=== PATIENT | female | born 1935 | race African-American/Black ===

== ENCOUNTER 2020-09-08 12:06 | Inpatient (IN) | payer OTHER ==
[2020-09-08 12:36] VITALS: BMI 24.4
[2020-09-08] MEDS ORDERED: ACETAMINOPHEN 1000 MG/100 ML VIAL (NON FORMULARY) IVPB ONE (12:58)
[2020-09-08] MEDS ORDERED: ACETAMINOPHEN INJECTION 100 ML IVPB ONE (13:35)
[2020-09-08 13:51] LABS: EPI CELLS 8 /uL (0-25.1); HYALINE CASTS 2 /uL (0-3.1); URINE APPEARANCE CLEAR; URINE BACTERIA 64 /uL (0-1359); URINE BILIRUBIN NEGATIVE (NEGATIVE); URINE COLOR YELLOW; URINE GLUCOSE (UA) NEGATIVE (NEGATIVE); URINE KETONE NEGATIVE (NEGATIVE); URINE LEUK ESTERASE NEGATIVE (NEGATIVE); URINE NITRITE NEGATIVE (NEGATIVE); URINE PROTEIN 1+ (NEGATIVE); URINE RBC 17 /uL (0-23.9); URINE UROBILINOGEN 0.2 mg/dL (0.2-1.0); URINE WBC 5 /uL (0-25.8)
[2020-09-08 15:17] LABS: VENOUS BASE EXCESS 2.3 mmol/L (-2-2); VENOUS O2 SATURATION 66.1 % (70-80); VENOUS PCO2 43.1 mmHg (38-52); VENOUS PH 7.42 (7.310-7.410)
[2020-09-08 15:20] LABS: BASO % 0.1 % (0-2.0); EOS % 0.1 % (0-4.5); HEMATOCRIT 50.1 % (32.4-45.2); HEMOGLOBIN 16.6 GM/dL (10.7-15.3); LYMPH % 14.7 % (8-40); MCH 32.8 pg (25.7-33.7); MCHC 33.2 g/dl (32.0-36.0); MEAN CELL VOLUME 98.8 fl (80-96); MONO % 7.8 % (3.8-10.2); NEUT % 77.3 % (42.8-82.8); PLATELET COUNT 148 K/MM3 (134-434); RBC 5.07 M/mm3 (3.60-5.2); RDW 15.7 % (11.6-15.6); WHITE BLOOD COUNT 10.8 K/mm3 (4.0-10.0)
[2020-09-08 15:26] LABS: INR 1.17 (0.83-1.09); PROTHROMBIN TIME (PATIENT) 14.3 SEC (9.7-13.0)
[2020-09-08 15:27] LABS: POTASSIUM 3.4 mmol/L (3.5-5.1)
[2020-09-08 15:28] LABS: ACTIVATED PTT 27.2 SECONDS (25.2-36.5)
[2020-09-08 15:29] LABS: ALBUMIN 3.3 g/dl (3.4-5.0)
[2020-09-08 15:31] LABS: BLOOD UREA NITROGEN 44.3 mg/dL (7-18)
[2020-09-08 15:32] LABS: BILIRUBIN,DIRECT 0.6 mg/dL (0.0-0.2); CREATININE 0.9 mg/dL (0.55-1.3)
[2020-09-08 15:34] LABS: TOT PROT 8.1 g/dl (6.4-8.2)
[2020-09-08] MEDS ORDERED: SODIUM CHLORIDE 0.9% 500 ML INFUS.BAG IV ONE (16:03)
[2020-09-08] MEDS ORDERED: DEXAMETHASONE SOD PHOSPHATE 4 MG/1 ML VIAL IVPUSH ONE (16:43)
[2020-09-08] MEDS ORDERED: ENOXAPARIN NA (PORCINE) 80 MG/0.8 ML DISP.SYRIN SQ ONE ×2 (16:49→17:59)
[2020-09-08] MEDS ORDERED: DEXAMETHASONE SOD PHOSPHATE 10 MG/1 ML VIAL ONE (17:59)
[2020-09-08] MEDS ORDERED: AZTREONAM 1 GM in DEXTROSE 5%-WATER - 50 ML IVPB ONE (18:13)
[2020-09-08] MEDS ORDERED: CLINDAMYCIN 600MG PREMIX IVPB 600 MG/50 ML BAG IVPB ONE (19:25)
[2020-09-08] MEDS: CLINDAMYCIN 600MG PREMIX IVPB 600 MG/50 ML BAG IVPB SCH ×2 (19:45→22:00)
[2020-09-09] MEDS ORDERED: CLINDAMYCIN 600MG PREMIX IVPB 600 MG/50 ML BAG IVPB ONE ×4 (03:12→21:08)
[2020-09-09] MEDS: CLINDAMYCIN 600MG PREMIX IVPB 600 MG/50 ML BAG IVPB SCH ×3 (03:16→16:22)
[2020-09-09 06:33] LABS: BASO % 0.1 % (0-2.0); HEMATOCRIT 42.4 % (32.4-45.2); HEMOGLOBIN 14.3 GM/dL (10.7-15.3); MCHC 33.6 g/dl (32.0-36.0); MEAN CELL VOLUME 98.2 fl (80-96); MEAN PLT VOLUME 11.6 fl (7.5-11.1); MONO % 2.6 % (3.8-10.2); NEUT % 90.3 % (42.8-82.8); PLATELET COUNT 137 K/MM3 (134-434); RBC 4.32 M/mm3 (3.60-5.2); RDW 14.9 % (11.6-15.6); WHITE BLOOD COUNT 14.8 K/mm3 (4.0-10.0)
[2020-09-09 06:47] LABS: POTASSIUM 3.2 mmol/L (3.5-5.1)
[2020-09-09 06:52] LABS: ALBUMIN 2.9 g/dl (3.4-5.0); BLOOD UREA NITROGEN 39.9 mg/dL (7-18)
[2020-09-09 06:55] LABS: CREATININE 0.7 mg/dL (0.55-1.3)
[2020-09-09 06:56] LABS: BILIRUBIN,TOTAL 1.2 mg/dL (0.2-1)
[2020-09-09 06:57] LABS: TOT PROT 7.4 g/dl (6.4-8.2)
[2020-09-09] MEDS ORDERED: FAMOTIDINE 20 MG TABLET ONE (09:58)
[2020-09-09] MEDS ORDERED: ENOXAPARIN NA (PORCINE) 80 MG/0.8 ML DISP.SYRIN SQ ONE ×2 (09:58→21:08)
[2020-09-09] MEDS: ENOXAPARIN NA (PORCINE) 80 MG/0.8 ML DISP.SYRIN SQ SCH (10:10)
[2020-09-09] MEDS: FAMOTIDINE 20 MG TABLET PO SCH (10:10)
[2020-09-09] MEDS ORDERED: AZTREONAM 1 GM VIAL (RESTRICTED TO ID) ONE (18:09)
[2020-09-09] MEDS: AZTREONAM 1 GM in DEXTROSE 5%-WATER - 50 ML IVPB SCH (18:36)
[2020-09-10] MEDS ORDERED: AZTREONAM 1 GM VIAL (RESTRICTED TO ID) ONE ×2 (00:37→09:09)
[2020-09-10] MEDS ORDERED: DEXTROSE 5%-WATER - 50 ML IVPB ONE ×2 (00:37→09:09)
[2020-09-10] MEDS: CLINDAMYCIN 600MG PREMIX IVPB 600 MG/50 ML BAG IVPB SCH ×3 (00:45→09:24)
[2020-09-10] MEDS: ENOXAPARIN NA (PORCINE) 80 MG/0.8 ML DISP.SYRIN SQ SCH ×3 (01:00→22:18)
[2020-09-10] MEDS: AZTREONAM 1 GM in DEXTROSE 5%-WATER - 50 ML IVPB SCH ×3 (02:30→18:03)
[2020-09-10] MEDS: FAMOTIDINE 20 MG TABLET PO SCH (09:24)
[2020-09-10] MEDS ORDERED: POTASSIUM CHLORIDE ORAL LIQUID 20 MEQ/15 ML GT ONE (13:32)
[2020-09-10] MEDS: VANCOMYCIN HCL 1,250 MG in DEXTROSE 5%-WATER - 1,250 MG/250 ML IVPB IVPB SCH (13:49)
[2020-09-11] MEDS: VANCOMYCIN HCL 1,250 MG in DEXTROSE 5%-WATER - 1,250 MG/250 ML IVPB IVPB SCH ×2 (00:17→12:01)
[2020-09-11] MEDS ORDERED: AZTREONAM 1 GM VIAL (RESTRICTED TO ID) ONE ×3 (01:33→16:54)
[2020-09-11] MEDS ORDERED: DEXTROSE 5%-WATER - 50 ML IVPB ONE ×3 (01:34→16:55)
[2020-09-11] MEDS: AZTREONAM 1 GM in DEXTROSE 5%-WATER - 50 ML IVPB SCH ×3 (02:00→17:29)
[2020-09-11 08:51] LABS: BASO % 0.1 % (0-2.0); EOS % 2.3 % (0-4.5); HEMATOCRIT 42.6 % (32.4-45.2); HEMOGLOBIN 13.7 GM/dL (10.7-15.3); LYMPH % 13.9 % (8-40); MCH 32.2 pg (25.7-33.7); MCHC 32.2 g/dl (32.0-36.0); MEAN CELL VOLUME 99.8 fl (80-96); MEAN PLT VOLUME 12.9 fl (7.5-11.1); MONO % 9.3 % (3.8-10.2); NEUT % 74.4 % (42.8-82.8); PLATELET COUNT 147 K/MM3 (134-434); RBC 4.27 M/mm3 (3.60-5.2); RDW 15.9 % (11.6-15.6); WHITE BLOOD COUNT 10.7 K/mm3 (4.0-10.0)
[2020-09-11 08:52] LABS: POTASSIUM 3.5 mmol/L (3.5-5.1)
[2020-09-11 09:02] LABS: CALCIUM 9.7 mg/dL (8.5-10.1)
[2020-09-11 09:03] LABS: ALBUMIN 2.8 g/dl (3.4-5.0)
[2020-09-11 09:05] LABS: BLOOD UREA NITROGEN 49.7 mg/dL (7-18)
[2020-09-11 09:06] LABS: CREATININE 0.8 mg/dL (0.55-1.3)
[2020-09-11 09:07] LABS: BILIRUBIN,TOTAL 0.5 mg/dL (0.2-1)
[2020-09-11] MEDS: FAMOTIDINE 20 MG TABLET PO SCH (09:55)
[2020-09-11] MEDS: ENOXAPARIN NA (PORCINE) 80 MG/0.8 ML DISP.SYRIN SQ SCH ×2 (09:55→22:35)
[2020-09-11] MEDS: D5-1/2NS+20 MEQ KCL - 20 MEQ/1,000 ML INFUS.BAG IV SCH (17:31)
[2020-09-12] MEDS ORDERED: AZTREONAM 1 GM VIAL (RESTRICTED TO ID) ONE (00:40)
[2020-09-12] MEDS ORDERED: DEXTROSE 5%-WATER - 50 ML IVPB ONE (00:41)
[2020-09-12] MEDS ORDERED: PT OWN MED DRAWER 7, Y5N ONE ×2 (00:43→14:49)
[2020-09-12] MEDS: VANCOMYCIN HCL 1,250 MG in DEXTROSE 5%-WATER - 1,250 MG/250 ML IVPB IVPB SCH ×2 (01:08→15:01)
[2020-09-12] MEDS: AZTREONAM 1 GM in DEXTROSE 5%-WATER - 50 ML IVPB SCH (03:15)
[2020-09-12] MEDS: ENOXAPARIN NA (PORCINE) 80 MG/0.8 ML DISP.SYRIN SQ SCH ×2 (09:19→21:16)
[2020-09-12] MEDS: FAMOTIDINE 20 MG TABLET PO SCH (09:19)
[2020-09-12 13:53] LABS: POTASSIUM 3.5 mmol/L (3.5-5.1)
[2020-09-12 13:54] LABS: BLOOD UREA NITROGEN 27.6 mg/dL (7-18)
[2020-09-12 13:58] LABS: CREATININE 0.5 mg/dL (0.55-1.3)
[2020-09-12 14:12] LABS: CHOLESTEROL 198 mg/dL (50-200)
[2020-09-12 14:13] LABS: LDL CHOLESTEROL (ONLY SJRH) 120 mg/dL (5-100); TRIGLYCERIDES 116 mg/dL (0-150)
[2020-09-12 14:15] LABS: HDL CHOLESTEROL 57 mg/dL (40-60)
[2020-09-12] MEDS: D5-1/2NS+20 MEQ KCL - 20 MEQ/1,000 ML INFUS.BAG IV SCH (15:02)
[2020-09-13] MEDS: VANCOMYCIN HCL 1,250 MG in DEXTROSE 5%-WATER - 1,250 MG/250 ML IVPB IVPB SCH ×2 (00:40→14:52)
[2020-09-13] MEDS: D5-1/2NS+20 MEQ KCL - 20 MEQ/1,000 ML INFUS.BAG IV SCH ×2 (09:30→14:09)
[2020-09-13] MEDS: FAMOTIDINE 20 MG TABLET PO SCH (10:08)
[2020-09-13] MEDS ORDERED: PT OWN MED DRAWER 7, Y5N ONE ×2 (13:58→21:07)
[2020-09-13] MEDS: ENOXAPARIN NA (PORCINE) 80 MG/0.8 ML DISP.SYRIN SQ SCH ×2 (14:07→21:48)
[2020-09-14] MEDS: VANCOMYCIN HCL 1,250 MG in DEXTROSE 5%-WATER - 1,250 MG/250 ML IVPB IVPB SCH ×2 (00:30→16:14)
[2020-09-14] MEDS ORDERED: PT OWN MED DRAWER 7, Y5N ONE (00:43)
[2020-09-14 07:33] LABS: HEMATOCRIT 34.5 % (32.4-45.2); HEMOGLOBIN 11.8 GM/dL (10.7-15.3); MCH 33.3 pg (25.7-33.7); MCHC 34.1 g/dl (32.0-36.0); MEAN CELL VOLUME 97.5 fl (80-96); MEAN PLT VOLUME 11.9 fl (7.5-11.1); PLATELET COUNT 137 K/MM3 (134-434); RBC 3.54 M/mm3 (3.60-5.2); RDW 15.2 % (11.6-15.6); WHITE BLOOD COUNT 7.2 K/mm3 (4.0-10.0)
[2020-09-14 08:02] LABS: CALCIUM 8.7 mg/dL (8.5-10.1)
[2020-09-14 08:03] LABS: ALBUMIN 2.1 g/dl (3.4-5.0); BLOOD UREA NITROGEN 13.7 mg/dL (7-18)
[2020-09-14 08:06] LABS: CREATININE 0.6 mg/dL (0.55-1.3)
[2020-09-14 08:07] LABS: BILIRUBIN,TOTAL 0.6 mg/dL (0.2-1); TOT PROT 5.6 g/dl (6.4-8.2)
[2020-09-14 10:51] LABS: POTASSIUM 2.9 mmol/L (3.5-5.1)
[2020-09-14] MEDS: FAMOTIDINE 20 MG TABLET PO SCH (11:00)
[2020-09-14] MEDS: ENOXAPARIN NA (PORCINE) 80 MG/0.8 ML DISP.SYRIN SQ SCH ×2 (11:00→21:29)
[2020-09-14] MEDS: KCL 10 MEQ IVPB 10 MEQ/100 ML INFUS.BAG IVPB SCH ×3 (11:16→13:59)
[2020-09-14] MEDS: D5-1/2NS+20 MEQ KCL - 20 MEQ/1,000 ML INFUS.BAG IV SCH (12:52)
[2020-09-15] MEDS: VANCOMYCIN HCL 1,250 MG in DEXTROSE 5%-WATER - 1,250 MG/250 ML IVPB IVPB SCH ×2 (01:12→11:42)
[2020-09-15 08:27] LABS: POTASSIUM 3.5 mmol/L (3.5-5.1)
[2020-09-15 08:29] LABS: CALCIUM 8.5 mg/dL (8.5-10.1)
[2020-09-15 08:30] LABS: BLOOD UREA NITROGEN 11.7 mg/dL (7-18)
[2020-09-15 08:33] LABS: CREATININE 0.9 mg/dL (0.55-1.3)
[2020-09-15] MEDS: ENOXAPARIN NA (PORCINE) 80 MG/0.8 ML DISP.SYRIN SQ SCH ×2 (09:01→22:27)
[2020-09-15] MEDS: FAMOTIDINE 20 MG TABLET PO SCH (09:02)
[2020-09-15] MEDS ORDERED: PT OWN MED DRAWER 7, Y5N ONE (11:39)
[2020-09-16 07:13] LABS: BASO % 0.2 % (0-2.0); EOS % 2.7 % (0-4.5); HEMATOCRIT 38.1 % (32.4-45.2); HEMOGLOBIN 12.8 GM/dL (10.7-15.3); LYMPH % 11.9 % (8-40); MCH 32.6 pg (25.7-33.7); MCHC 33.5 g/dl (32.0-36.0); MEAN CELL VOLUME 97.1 fl (80-96); MEAN PLT VOLUME 11.7 fl (7.5-11.1); MONO % 7.8 % (3.8-10.2); NEUT % 77.4 % (42.8-82.8); PLATELET COUNT 152 K/MM3 (134-434); RBC 3.92 M/mm3 (3.60-5.2); RDW 15.8 % (11.6-15.6); WHITE BLOOD COUNT 11.9 K/mm3 (4.0-10.0)
[2020-09-16 07:35] LABS: POTASSIUM 3.4 mmol/L (3.5-5.1)
[2020-09-16 07:42] LABS: CALCIUM 8.3 mg/dL (8.5-10.1)
[2020-09-16 07:43] LABS: ALBUMIN 2.1 g/dl (3.4-5.0); BLOOD UREA NITROGEN 21.5 mg/dL (7-18)
[2020-09-16 07:46] LABS: CREATININE 1.8 mg/dL (0.55-1.3)
[2020-09-16 07:47] LABS: BILIRUBIN,TOTAL 0.4 mg/dL (0.2-1); TOT PROT 5.8 g/dl (6.4-8.2)
[2020-09-16] MEDS: FAMOTIDINE 20 MG TABLET PO SCH (09:58)
[2020-09-16] MEDS: ENOXAPARIN NA (PORCINE) 80 MG/0.8 ML DISP.SYRIN SQ SCH (09:58)
[2020-09-16] MEDS ORDERED: POTASSIUM CHLORIDE ORAL LIQUID 20 MEQ/15 ML GT ONE (15:55)
[2020-09-16] MEDS: APIXABAN 5 MG TABLET GT SCH (23:21)
[2020-09-17 07:42] LABS: POTASSIUM 4.4 mmol/L (3.5-5.1)
[2020-09-17 07:44] LABS: CALCIUM 8.2 mg/dL (8.5-10.1)
[2020-09-17 07:45] LABS: ALBUMIN 1.9 g/dl (3.4-5.0); BLOOD UREA NITROGEN 30.1 mg/dL (7-18)
[2020-09-17 07:47] LABS: CREATININE 2.2 mg/dL (0.55-1.3)
[2020-09-17 07:49] LABS: BILIRUBIN,TOTAL 0.4 mg/dL (0.2-1); TOT PROT 5.4 g/dl (6.4-8.2)
[2020-09-17] MEDS: APIXABAN 5 MG TABLET GT SCH ×2 (09:35→21:27)
[2020-09-17] MEDS: FAMOTIDINE 20 MG TABLET PO SCH (09:35)
[2020-09-17] MEDS: SODIUM CHLORIDE 0.45% 1,000 ML IV SCH ×2 (13:30→23:00)
[2020-09-18 07:43] LABS: BASO % 0.2 % (0-2.0); HEMATOCRIT 31.7 % (32.4-45.2); HEMOGLOBIN 10.8 GM/dL (10.7-15.3); LYMPH % 15.8 % (8-40); MCH 33.1 pg (25.7-33.7); MEAN CELL VOLUME 97.4 fl (80-96); MEAN PLT VOLUME 11.3 fl (7.5-11.1); PLATELET COUNT 163 K/MM3 (134-434); RBC 3.25 M/mm3 (3.60-5.2); RDW 15.6 % (11.6-15.6); WHITE BLOOD COUNT 9.9 K/mm3 (4.0-10.0)
[2020-09-18] MEDS ORDERED: PT OWN MED DRAWER 7, Y5N ONE (08:00)
[2020-09-18 08:10] LABS: POTASSIUM 4.4 mmol/L (3.5-5.1)
[2020-09-18 08:25] LABS: ALBUMIN 1.9 g/dl (3.4-5.0); BLOOD UREA NITROGEN 36.9 mg/dL (7-18); CALCIUM 8.5 mg/dL (8.5-10.1)
[2020-09-18 08:27] LABS: MAGNESIUM 2.9 mg/dL (1.8-2.4)
[2020-09-18 08:29] LABS: CREATININE 2.3 mg/dL (0.55-1.3)
[2020-09-18 08:30] LABS: BILIRUBIN,TOTAL 0.6 mg/dL (0.2-1); PHOSPHOROUS 2.9 mg/dL (2.5-4.9)
[2020-09-18 08:31] LABS: TOT PROT 5.4 g/dl (6.4-8.2)
[2020-09-18] MEDS: SODIUM CHLORIDE 0.45% 1,000 ML IV SCH ×2 (09:39→19:30)
[2020-09-18] MEDS: FAMOTIDINE 20 MG TABLET PO SCH (09:40)
[2020-09-19] MEDS: SODIUM CHLORIDE 0.45% 1,000 ML IV SCH (06:30)
[2020-09-19] MEDS: FAMOTIDINE 20 MG TABLET PO SCH (09:44)
[2020-09-19] MEDS: APIXABAN 5 MG TABLET GT SCH (09:44)
[2020-09-19 10:37] LABS: BASO % 0.1 % (0-2.0); EOS % 0.1 % (0-4.5); HEMATOCRIT 23.9 % (32.4-45.2); LYMPH % 6.6 % (8-40); MCH 33.2 pg (25.7-33.7); MCHC 33.5 g/dl (32.0-36.0); MEAN PLT VOLUME 10.9 fl (7.5-11.1); NEUT % 84.2 % (42.8-82.8); PLATELET COUNT 127 K/MM3 (134-434); RBC 2.42 M/mm3 (3.60-5.2); RDW 15.5 % (11.6-15.6); WHITE BLOOD COUNT 13.9 K/mm3 (4.0-10.0)
[2020-09-19 10:47] LABS: POTASSIUM 5.8 mmol/L (3.5-5.1)
[2020-09-19 10:50] LABS: CALCIUM 8.6 mg/dL (8.5-10.1)
[2020-09-19 10:51] LABS: BLOOD UREA NITROGEN 47.3 mg/dL (7-18)
[2020-09-19 10:54] LABS: CREATININE 2.7 mg/dL (0.55-1.3)
[2020-09-19 10:55] LABS: BILIRUBIN,TOTAL 0.9 mg/dL (0.2-1); TOT PROT 5.9 g/dl (6.4-8.2)
[2020-09-19] MEDS ORDERED: SODIUM POLYSTYRENE SULFONATE 15 GM/60 ML BOTTLE RC ONE (12:00)
[2020-09-19] MEDS ORDERED: SODIUM CHLORIDE 1,000 ML IV SCH (12:00)
[2020-09-19 12:48] VITALS: BP 111/78; PULSE 114; TEMP 97.6
[2020-09-19] MEDS ORDERED: SILVER SULFADIAZINE 1% TOP CREAM 50 GM JAR TP SCH (13:45)
[2020-09-19] MEDS ORDERED: ALBUTEROL SO4 2.5/IPRATROPIUM 0.5 INH SOL 3 ML VIAL.NEB. NEB SCH (14:00)
[2020-09-19] MEDS ORDERED: FUROSEMIDE 40 MG/4 ML INJECTABLE VIAL ONE (18:08)
[2020-09-19] MEDS ORDERED: FUROSEMIDE 40 MG/4 ML INJECTABLE VIAL IVPUSH ONE (18:30)
== END 2020-09-19 21:11 | disposition expired | DRG 871 ==
LOC: JER 12:06 → JERBED 18:14 → J4W 09-09 23:06
PROVIDERS: ATTEND Internal Medicine
DX: A41.9 Sepsis, unspecified organism (principal); I26.94 Multiple subsegmental thrombotic pulmonary emboli without acute cor pulmonale; R53.2 Functional quadriplegia; J69.0 Pneumonitis due to inhalation of food and vomit; E87.0 Hyperosmolality and hypernatremia; E87.2 Acidosis; K94.23 Gastrostomy malfunction; I50.32 Chronic diastolic (congestive) heart failure; N17.9 Acute kidney failure, unspecified; F03.90 Unspecified dementia, unspecified severity, without behavioral disturbance, psychotic disturbance, mood disturbance, and anxiety; L89.152 Pressure ulcer of sacral region, stage 2; L89.322 Pressure ulcer of left buttock, stage 2; E78.5 Hyperlipidemia, unspecified; I10 Essential (primary) hypertension; E87.6 Hypokalemia; K21.9 Gastro-esophageal reflux disease without esophagitis; R00.0 Tachycardia, unspecified; I25.10 Atherosclerotic heart disease of native coronary artery without angina pectoris; D72.829 Elevated white blood cell count, unspecified; N18.9 Chronic kidney disease, unspecified
CPT/HCPCS: 36415; 71045-TC-FY; 71275-TC; 74018-TC-FY; 76775-TC; 76856-TC; 80048; 80053; 80061; 81003; 82248; 82550; 82728; 82803; 82962; 83036; 83605; 83615; 83721; 83735; 84100; 84443; 84484; 85025; 85027; 85379; 85610; 85730; 86140; 86769; 86850; 86900; 86901; 87040; 87086; 87186; 87205; 87324; 87449; 87804; 93005; 93010; 93306-TC; 93970-TC; 94640; 99291; C9803; G0480; J0131; Q9967; U0003